=== PATIENT | male | born 1945 | race Caucasian/White ===

== ENCOUNTER 2018-02-04 09:58 | Emergency (ER) | payer OTHER, SELFPAY ==
[2018-02-04] VITALS (7 sets, daily range): BP systolic 87–159; BP diastolic 51–106; PULSE 58–154; RESP 14–20; TEMP 36.7; O2SAT 99–100; BMI 22.4
[2018-02-04] MEDS: SODIUM CHLORIDE 0.9% 1,000 ML 1000 ML IV (10:36)
--- NOTE | 2018-02-04 10:47 | PC.NURSE ---
Denies complaints. Laying in bed, talking w/ . States he did not take in a significant amount of fluid yesterday, and today has been NPO since last evening.
--- NOTE | 2018-02-04 10:47 | ED.ARRPALP ---
HPI - Arrhythmia/Palpitations General Chief Complaint: Arrhythmia/Palpitations Stated Complaint: states Afib Time Seen by Provider: 02/04/18 10:03 Source: patient and family Mode of arrival: ambulatory Limitations: no limitations History of Present Illness HPI narrative: Patient presents to the emergency department with a chief complaint of palpitations that started last evening. He has a longstanding history of AFib which seems to be triggered by hot weather. He was over in when throat been it was near 80?? yesterday. He denies chest pain or shortness of breath. His symptoms persist on arrival. His baseline blood pressure is about 100 systolic MD complaint: rapid heart beat, heart racing and palpitations Onset (ago): hour(s) Duration: constant Severity: moderate Context: occurred during rest Arrhythmia history: atrial fibrillation Associated symptoms: denies other symptoms Related Data Previous Rx's Medication Instructions Recorded atenolol 37.5 mg PO QDAY #135 tab 10/14/17 Allergies Allergy/AdvReac Type Severity Reaction Status Date / Time No Known Drug Allergies Allergy Verified 02/04/18 10:14 Review of Systems Review of Systems All systems reviewed & are unremarkable except as noted in HPI and below Constitutional Denies chills, Denies fever(s), Denies lethargy and Denies weakness Eyes Denies change in vision, Denies eye discharge, Denies irritation and Denies loss of vision ENT Ears, Nose, Mouth, and Throat: Denies change in voice, Denies neck pain and Denies sore throat Cardiovascular Denies chest pain, Reports irregular heart rhythm, Denies lightheadedness, Denies palpitations, Denies dyspnea, Denies dyspnea on exertion and Denies orthopnea Respiratory Denies cough, Denies dyspnea, Denies dyspnea on exertion and Denies wheezing Gastrointestinal Gastrointestinal: Denies abdominal pain, Denies change in bowel habits, Denies diarrhea, Denies nausea and Denies vomiting Genitourinary Denies hematuria, Denies flank pain, Denies urinary incontinence and Denies urinary urgency Musculoskeletal Denies neck pain Integumentary/Breasts Denies pruritus, Denies erythema, Denies rash and Denies wounds Neurologic Denies confusion, Denies loss of vision and Denies weakness Psychiatric Denies anxiety, Denies confusion, Denies depression, Denies homicidal ideation and Denies suicidal ideation Endocrine Denies palpitations Hematologic/Lymphatic Denies easy bruising Allergic/Immunologic Denies wheezing PFSH Social History Smoking Status: Never smoker Exam Narrative Exam Narrative: Pleasant 73-year-old male in mild distress. Monitor showing a rapid rhythm around 150-160 Const General: cooperative and well developed Nutritional Appearance: well nourished Orientation: alert, awake, oriented x3 and not confused HENMT Head: normocephalic and atraumatic Ears: external ears normal and TM's normal bilaterally Nose: external nose normal and No nasal discharge Face and sinus: sinuses nontender, face symmetric, no sinus tenderness and No dry mucous membranes Mouth: oral mucosae normal and moist mucous membranes Teeth and gingiva: dentition normal Throat: tonsils normal and uvula midline Resp Effort & Inspection: normal respiratory effort, able to speak in complete sentences, no respiratory distress and no use of accessory muscles Auscultation: clear to auscultation bilaterally, no rales, no rhonchi and no wheezes Cardio Rate: tachycardic Rhythm: abnormal rhythm Heart Sounds: no click, no gallops, no murmurs and no rubs Pulses: normal peripheral pulses GI Inspection: non-distended Palpation: soft, no hepatosplenomegaly, No guarding, No pulsatile mass and No tender Auscultation: normal bowel sounds Skin General: no rashes or lesions noted, No jaundice and No petechiae Neuro General: alert, oriented x3 and gait normal Speech: speech normal Sensory Exam: no sensory deficits noted Extrem General: full ROM, no clubbing, cyanosis or edema, no pedal edema and no calf tenderness MDM - Arrhythmia/Palpitations Differential Diagnosis Differential diagnosis: Likely palpitations, sinus tachycardia and artial fibrillation Medical Records Attestation: I reviewed the patient's medical records. ECG Data Attestation: I personally reviewed and interpreted this ECG as follows: Prior ECG tracings: not available for review Interpretation: EKG1: rapid AFib 148. No ischemia. No ST/T wave changes EKG2: spontaneous conversion to NSR, 68. no ischemia Course Orders Ordered: ED Orders 02/04/18 10:17 EKG-12 Lead Stat 02/04/18 10:18 EKG-12 Lead Stat Discontinued Medications Sodium Chloride (Normal Saline 0.9%) 1,000 mls @ 1,000 mls/hr IV BOLUS ONE Stop: 02/04/18 11:33 Last Infusion: 02/04/18 11:42 Dose: 0 mls/hr Admin: 02/04/18 10:36 Dose: 1,000 mls/hr Last Vital Signs Temp 98.1 F 02/04/18 10:00 Pulse 60 02/04/18 11:15 Resp 14 02/04/18 11:15 BP 98/55 L 02/04/18 11:15 Pulse Ox 100 02/04/18 11:15 Discharge Plan Departure Patient Disposition: Home, Self-Care Clinical Impression: A-fib Discharge Date/Time: 02/04/18 11:45 Interventions: ED Discharge Assessment Last Done: 02/04/18 11:44 Instructions: DI for Atrial Fibrillation Prescriptions: No Action atenolol 25 MG tablet 37.5 mg PO QDAY Qty: 135 RF: 3 Referrals: Alfredo Soto MD [Primary Care Provider] -
--- NOTE | 2018-02-04 11:41 | PC.NURSE ---
Up and walked around. States he feels well. Denies dizziness, sob, cp, palpitations. Continues NSR on monitor. Cleared for discharge.
--- NOTE | 2018-02-04 11:43 | PC.NURSE ---
EKG x 2 completed, both reviewed by Dr. Burt
== END 2018-02-04 11:45 | disposition home or self-care (01) ==
PROVIDERS: Emergency Provider Emergency Medicine; Family Provider Internal Medicine; PCP Internal Medicine
DX: I48.91 Unspecified atrial fibrillation (principal)
CPT/HCPCS: 36591; 93005; 93041; 96360; 99284

== ENCOUNTER 2018-02-23 06:37 | Observation (INO) | payer OTHER, SELFPAY ==
[2018-02-23] VITALS (28 sets, daily range): BP systolic 81–148; BP diastolic 30–80; PULSE 38–161; RESP 11–24; TEMP 36.7–37.4; O2SAT 95–99; BMI 21.9
[2018-02-23 07:08] LABS: Add Manual Diff / Slide Review NO; Basophils Percent Auto 0.8 % (0-2); Hematocrit 45.3 % (41-53); Hemoglobin 15.8 g/dL (13.5-17.5); Lymphocytes Percent Auto 19.6 % (25-40); Mean Corpuscular HGB Conc 34.9 % (30-36); Mean Corpuscular Volume 91.6 fL (80-100); Monocytes Percent Auto 11.1 % (3-14); Neutrophils Absolute Auto 3300 /uL (3000-5900); Neutrophils Percent Auto 63.5 % (50-75); Platelet Count 189 X10^3/uL (150-400); Red Blood Cell Count 4.94 X10^6/uL (4.5-5.9); Red Cell Distribution Width 12.9 % (11.6-14.8); White Blood Cell Count 5.2 X10^3/uL (4.5-11.0)
[2018-02-23 07:12] LABS: Prothrombin Time 11.2 SECONDS (10.1-12.7)
[2018-02-23 07:14] LABS: PTT Partial Thromboplastin Tim 30 SECONDS (26.4-36.2)
[2018-02-23 07:18] LABS: Blood Urea Nitrogen 24 mg/dL (9-20); Carbon Dioxide 29 mmol/L (22-32); Chloride 101 mmol/L (98-107); Estimated Glomerular Filt Rate > 60.0 mL/min (>60); Glucose 103 mg/dL (80-110); HEMOLYSIS 20 (0-50); Potassium 4.5 mmol/L (3.4-5.1); Sodium 139 mmol/L (137-145)
--- NOTE | 2018-02-23 07:20 | ED.ARRPALP ---
HPI - Arrhythmia/Palpitations General Chief Complaint: Arrhythmia/Palpitations Stated Complaint: AFIB Time Seen by Provider: 02/23/18 07:00 Source: patient Mode of arrival: ambulatory Limitations: no limitations History of Present Illness HPI narrative: Patient presents to the emergency department this morning with a chief complaint of rapid AFib. He has increasing frequency in his AFib and prior to the past few months he had gone about 5 years. He was seen here and cardioverted on November 24 and was seen again on February 02 but spontaneously converted. He only takes atenolol for rate control and has a low chads Vasc score is therefore on no anticoagulation. He denies chest pain, shortness of breath nor dizziness. He states he started this morning at about 5am and is usually rather sensitive to the effects of afib. MD complaint: rapid heart beat, heart racing, palpitations, irregular heart beat and atrial fibrillation Onset (ago): hour(s) Duration: constant Severity: moderate Context: occurred during rest Arrhythmia history: atrial fibrillation Associated symptoms: denies other symptoms Related Data Previous Rx's Medication Instructions Recorded atenolol 37.5 mg PO QDAY #135 tab 10/14/17 Allergies Allergy/AdvReac Type Severity Reaction Status Date / Time No Known Drug Allergies Allergy Verified 02/04/18 10:14 Review of Systems Review of Systems All systems reviewed & are unremarkable except as noted in HPI and below Constitutional Denies chills, Denies fever(s), Denies lethargy and Denies weakness Eyes Denies change in vision, Denies eye discharge, Denies irritation and Denies loss of vision ENT Ears, Nose, Mouth, and Throat: Denies change in voice, Denies neck pain and Denies sore throat Cardiovascular Denies chest pain, Reports irregular heart rhythm, Denies lightheadedness, Reports palpitations, Denies dyspnea, Denies dyspnea on exertion and Denies orthopnea Respiratory Denies cough, Denies dyspnea, Denies dyspnea on exertion and Denies wheezing Gastrointestinal Gastrointestinal: Denies abdominal pain, Denies change in bowel habits, Denies diarrhea, Denies nausea and Denies vomiting Genitourinary Denies hematuria, Denies flank pain, Denies urinary incontinence and Denies urinary urgency Musculoskeletal Denies neck pain Integumentary/Breasts Denies pruritus, Denies erythema, Denies rash and Denies wounds Neurologic Denies confusion, Denies loss of vision and Denies weakness Psychiatric Denies anxiety, Denies confusion, Denies depression, Denies homicidal ideation and Denies suicidal ideation Endocrine Reports palpitations Hematologic/Lymphatic Denies easy bruising Allergic/Immunologic Denies wheezing PFSH Social History Smoking Status: Never smoker Exam Narrative Exam Narrative: Pleasant 73-year-old male in no significant distress Initial Vital Signs Initial Vital Signs: Vital Signs Temperature 98.0 F 02/23/18 07:03 Pulse Rate 135 H 02/23/18 07:03 Respiratory Rate 16 02/23/18 07:03 Blood Pressure 122/67 H 02/23/18 07:03 Pulse Oximetry 99 02/23/18 07:03 Const General: cooperative and well developed Nutritional Appearance: well nourished Orientation: alert, awake, oriented x3 and not confused HENMT Head: normocephalic and atraumatic Ears: external ears normal and TM's normal bilaterally Nose: external nose normal and No nasal discharge Face and sinus: sinuses nontender, face symmetric, no sinus tenderness and No dry mucous membranes Mouth: oral mucosae normal and moist mucous membranes Teeth and gingiva: dentition normal Throat: tonsils normal and uvula midline Eyes General: appearance normal, both eyes and all related structures Eyelids: eyelids normal Conjunctivae: conjunctivae normal Sclera: sclerae normal Pupils: PERRL EOM: EOM intact bilaterally Chest Chest: normal inspection of the chest Resp Effort & Inspection: normal respiratory effort, able to speak in complete sentences, no respiratory distress and no use of accessory muscles Auscultation: clear to auscultation bilaterally, no rales, no rhonchi and no wheezes Cardio Rate: tachycardic Rhythm: abnormal rhythm Heart Sounds: no click, no gallops, no murmurs and no rubs Pulses: normal peripheral pulses GI Inspection: non-distended Palpation: soft, no hepatosplenomegaly, No guarding, No pulsatile mass and No tender Auscultation: normal bowel sounds Skin General: no rashes or lesions noted, No jaundice and No petechiae Psych Appearance: well kempt Mental Status: mental status grossly normal Attitude: cooperative Thought Content: normal and suicidality Judgment: judgment good Course Orders Ordered: ED Orders 02/23/18 06:53 Basic Metabolic Panel Stat Complete Blood Count AUTO DIFF Stat Partial Thromboplastin Time Stat Prothrombin Time INR Stat Troponin I Stat 02/23/18 07:01 EKG-12 Lead Stat 02/23/18 08:00 XR chest 1V Stat Diltiazem HCl 125 mg/ Dextrose 125 mls @ 5 mls/hr IV TITRATE ENIO; Protocol Sodium Chloride (Normal Saline 0.9%) 1,000 mls @ 100 mls/hr IV BOLUS ONE Stop: 02/23/18 18:38 Discontinued Medications Diltiazem HCl (Cardizem) 10 mg IV NOW ONE Stop: 02/23/18 07:23 Last Admin: 02/23/18 07:29 Dose: 10 mg Reevaluation(s) Reevaluation #1: Cardizem 10 mg IV push brings heart rate from the 150s and 160s down to about 110 Time: 08:22 Consultations Consultation #1: Dr. Brittany naidu for admission. Cardizem drip ordered Time: 08:23 Vital Signs - 8 hr 02/23/18 07:03 02/23/18 07:39 Temperature 98.0 F Pulse Rate 135 H 124 H Respiratory Rate 16 20 Blood Pressure 122/67 H Blood Pressure [Right Arm] 94/46 L Pulse Oximetry 99 95 MDM - Arrhythmia/Palpitations Differential Diagnosis Differential diagnosis: Likely palpitations, anxiety and artial fibrillation Medical Records Attestation: I reviewed the patient's medical records. Lab Data Attestation: I reviewed the patient's lab results. Result diagrams: 02/23/18 06:53 02/23/18 06:53 Lab Results 02/23/18 02/23/18 02/23/18 Range/Units 06:53 06:53 06:53 WBC 5.2 (4.5-11.0) X10^3/uL RBC 4.94 (4.5-5.9) X10^6/uL Hgb 15.8 (13.5-17.5) g/dL Hct 45.3 (41-53) % MCV 91.6 (80-100) fL MCH 32.0 (26-34) PG MCHC 34.9 (30-36) % RDW 12.9 (11.6-14.8) % Plt Count 189 (150-400) X10^3/uL Neut % (Auto) 63.5 (50-75) % Lymph % (Auto) 19.6 L (25-40) % [place] % (Auto) 11.1 (3-14) % Eos % (Auto) 5.0 H (2-4) % Baso % (Auto) 0.8 (0-2) % Neut # (Auto) 3300 (4787-1034) /uL PT 11.2 (10.1-12.7) SECONDS INR 1.0 (0.9-1.3) APTT 30 (26.4-36.2) SECONDS Sodium 139 (137-145) mmol/L Potassium 4.5 (3.4-5.1) mmol/L Chloride 101 (98-107) mmol/L Carbon Dioxide 29 (22-32) mmol/L BUN 24 H (9-20) mg/dL Creatinine 0.80 (0.66-1.25) mg/dL Estimated GFR > 60.0 (>60) mL/min BUN/Creatinine Ratio 30.0 H (6-22) Glucose 103 (80-110) mg/dL Calcium 9.0 (8.4-10.2) mg/dL Troponin I < 0.012 (0.01-0.034) ng/mL ECG Data Attestation: I personally reviewed and interpreted this ECG as follows: Prior ECG tracings: available for review Interpretation: Afib 150-160s. No ST segmental depression/elevation. NO signs of ischemia MDM Narrative Medical decision making narrative: patient has been Afib at least one other time in the past few weeks. He has increasing episodes and is largely sensitive to the sensation, but he is not anticoagulated and is having no significant symptoms and is therefore not a candidate for cardioversion in my opinion. We will admit on Cardizem drip to further characterize and stabilize his condition. Discharge Plan Departure Patient Disposition: Admitted As Inpatient Clinical Impression: Atrial fibrillation with rapid ventricular response Interventions: ED Discharge Assessment Last Done: 02/23/18 07:43
[2018-02-23] MEDS: dilTIAZem 25 MG/5 ML SDV 10 MG IV (07:29)
[2018-02-23 07:39] LABS: Troponin I < 0.012 ng/mL (0.01-0.034)
--- NOTE | 2018-02-23 08:00 | DI.RAD.S_ITS ---
PROCEDURE: XR CHEST 1V INDICATIONS: fall, trauma, preop TECHNIQUE: One view of the chest was acquired. COMPARISON: [facility], , CHEST 1 VIEW, 11/24/2017, 6:10. FINDINGS: Surgical changes and devices: None. Lungs and pleura: No pleural effusions or pneumothorax. Lungs are clear. Mediastinum: Mediastinal contours appear normal. Heart size is normal. Aortic calcifications. Bones and chest wall: No suspicious bony lesions. Thoracic scoliosis. Overlying soft tissues appear unremarkable. IMPRESSION: No acute cardiopulmonary abnormality. Dictated by: Jeff Barton M.D. on 02/23/2018 at 8:14 Approved by: Jeff Barton M.D. on 02/23/2018 at 8:14
[2018-02-23] MEDS: dilTIAZem 125 MG in DEXTROSE 5 % IN WATER 100 ML IV (08:43)
--- NOTE | 2018-02-23 09:25 | PM.HP.1 ---
History of Present Illness Chief complaint: AFIB Narrative: Samuel Spence is a 73 year old male with a longstanding history of atrial fibrillation that has been paroxysmal. This probably dates back 20+ years. He has always been easy to cardiovert and has remained in sinus rhythm for extended periods of time between episodes of atrial fibrillation. He is actively refused anticoagulation and his risk score is actually been low enough it has not been recommended to him. However over the last 3+ months he has had 3+ episodes of atrial fibrillation. He spontaneously returned to sinus rhythm once which is unusual for him he came to the ER for electrocardioversion once and is back again with a recurrent episode of atrial fibrillation and rather rapid ventricular response which is his usual response. He has not been seen by Cardiology for many many years. Last clam treader was in [place]. Patient History Medical History Paroxysmal atrial fibrillation (Chronic) Essential tremor (Chronic 02/05/16) Family & Social History Family History: Reviewed 02/23/18 by Alfredo Soto MD Tobacco & Substance use: Smoking Status Never smoker alcohol intake frequency 0-2 drinks per day Substance Use Type does not use Meds Home Medications Medication Instructions Recorded Confirmed Type atenolol 37.5 mg PO QDAY #135 tab 10/14/17 02/23/18 Rx aspirin 1 tab PO 2XW 02/23/18 02/23/18 History [id number] 1 tab PO EVERY OTHER DAY 02/23/18 02/23/18 History [Multivitamin 50 Plus] Allergies Allergy/AdvReac Type Severity Reaction Status Date / Time No Known Drug Allergies Allergy Verified 02/04/18 10:14 Review of Systems Constitutional Constitutional: Denies excessive sweating, Denies fever(s), Denies headache(s), Denies weakness, Denies weight gain and Denies weight loss Eyes Eyes: Denies change in vision, Denies itchy eyes, Denies loss of vision and Denies other visual disturbances ENT Ears, Nose, Mouth, and Throat: No difficulty swallowing, No headache(s) and No neck pain Cardiovascular Cardiovascular: Denies chest pain, Denies fainting, Reports fast heart rate, Reports irregular heart rhythm, Reports rapid, pounding, or irregular heartbeat, Denies shortness of breath, Denies shortness of breath with exertion and Denies slow heart rate Respiratory Respiratory: Denies dyspnea and Denies dyspnea on exertion Gastrointestinal Gastrointestinal: Denies abdominal pain, Denies bloating, Denies change in bowel habits, Denies change in stool character, Denies dysphagia, Denies nausea, Denies vomiting and Denies hematemesis Genitourinary Genitourinary: Denies hematuria, Denies difficulty urinating and Denies urinary frequency Musculoskeletal Musculoskeletal: Denies abnormal gait, Denies myalgias, Denies arthralgias, Denies limited range of motion and Denies neck pain Integumentary/Breasts Skin/Breast: Denies bleeding lesions, Denies change in pigmentation, Denies changing lesions, Denies new lesions, Denies rash, Denies skin swelling, Denies sores and Denies jaundice Neurologic Neurologic: Denies abnormal gait, Denies behavioral changes, Denies confusion, Denies syncope, Denies headache(s), Denies loss of vision, Denies memory loss and Denies weakness Psychiatric Psychiatric: Denies behavioral changes, Denies change in appetite, Denies confusion, Denies difficulty concentrating, Denies auditory hallucinations, Denies memory loss, Denies mood swings and Denies suicidal ideation Endocrine Endocrine: Denies excessive sweating and Reports palpitations Hematologic/Lymphatic Hematologic/Lymphatic: Denies easy bleeding, Denies easy bruising and Denies lymphadenopathy Allergic/Immunologic Allergic/Immunologic: Denies itchy eyes Exam Vital Signs (past 8 hours): Vital Signs - 8 hr 02/23/18 07:03 02/23/18 07:39 02/23/18 08:39 Temperature 98.0 F Pulse Rate 135 H 124 H 161 H Respiratory Rate 16 20 21 Blood Pressure 122/67 H Blood Pressure [Right Arm] 94/46 L 101/56 L Pulse Oximetry 99 95 95 02/23/18 08:43 Temperature Pulse Rate 138 H Respiratory Rate Blood Pressure 101/56 L Blood Pressure [Right Arm] Pulse Oximetry Pulse Oximetry 95 Oxygen Delivery Method Room Air Narrative Exam Narrative: Elderly male who appears younger than stated age in no obvious distress lying on a gurney in the emergency department HEENT-unremarkable, normocephalic atraumatic Neck-no lymphadenopathy no bruits Lungs-clear anteriorly and posteriorly no wheezes no crackles good breath sounds Heart-irregularly irregular rate and rhythm no murmur rub or gallop normal S1-S2 Abdomen-positive bowel tones soft nontender nondistended no hepatosplenomegaly no masses palpable Neuro-normal to screening exam, gait not tested Extremities-no cyanosis clubbing or edema Objective Imaging Chest x-ray: My impression: No cardiopulmonary disease based on single-view chest x-ray Radiologist's impression: PROCEDURE: XR CHEST 1V INDICATIONS: fall, trauma, preop TECHNIQUE: One view of the chest was acquired. COMPARISON: [facility], , CHEST 1 VIEW, 11/24/2017, 6:10. FINDINGS: Surgical changes and devices: None. Lungs and pleura: No pleural effusions or pneumothorax. Lungs are clear. Mediastinum: Mediastinal contours appear normal. Heart size is normal. Aortic calcifications. Bones and chest wall: No suspicious bony lesions. Thoracic scoliosis. Overlying soft tissues appear unremarkable. IMPRESSION: No acute cardiopulmonary abnormality. ECG: Atrial fibrillation with rapid ventricular response Labs Result Diagrams: 02/23/18 06:53 02/23/18 06:53 Labs: Laboratory Results - last 24 hr 02/23/18 02/23/18 02/23/18 06:53 06:53 06:53 WBC 5.2 RBC 4.94 Hgb 15.8 Hct 45.3 MCV 91.6 MCH 32.0 MCHC 34.9 RDW 12.9 Plt Count 189 Neut % (Auto) 63.5 Lymph % (Auto) 19.6 L [place] % (Auto) 11.1 Eos % (Auto) 5.0 H Baso % (Auto) 0.8 Neut # (Auto) 3300 PT 11.2 INR 1.0 APTT 30 Sodium 139 Potassium 4.5 Chloride 101 Carbon Dioxide 29 BUN 24 H Creatinine 0.80 Estimated GFR > 60.0 BUN/Creatinine Ratio 30.0 H Glucose 103 Calcium 9.0 Troponin I < 0.012 Assessment & Plan (1) Atrial fibrillation with rapid ventricular response: Current visit: Yes Status: Acute Plan: Plan: Patient presented with recurrent atrial fibrillation. Rate has been slowed with use of IV diltiazem. Will continue on IV diltiazem drip. Given the increased frequency of these episodes I would think patient would benefit from Cardiology consultation for more definitive options of treatment rather than just having a cardioversion and sent on his way which is what patient would prefer. Therefore fortunately his troponin was normal all obtain an echocardiogram. Continue on IV diltiazem. I will give him Lovenox for anticoagulation for now and obtain cardiology consultation. I will also keep him NPO as patient is pretty clear he would prefer to have an electrical cardioversion if at all possible and I will defer that decision making to Cardiology. That could be done later this afternoon or potentially in the morning after he has been seen by Cardiology in any event. Patient really does not have any other active medical problems. Has a borderline history of an essential tremor which has been controlled with the atenolol a normally takes anyway for his atrial fibrillation.
--- NOTE | 2018-02-23 09:33 | P.HP_ITS ---
History of Present Illness Chief complaint: AFIB Narrative: Samuel Spence is a 73 year old male with a longstanding history of atrial fibrillation that has been paroxysmal. This probably dates back 20+ years. He has always been easy to cardiovert and has remained in sinus rhythm for extended periods of time between episodes of atrial fibrillation. He is actively refused anticoagulation and his risk score is actually been low enough it has not been recommended to him. However over the last 3+ months he has had 3+ episodes of atrial fibrillation. He spontaneously returned to sinus rhythm once which is unusual for him he came to the ER for electrocardioversion once and is back again with a recurrent episode of atrial fibrillation and rather rapid ventricular response which is his usual response. He has not been seen by Cardiology for many many years. Last electronic gluer was in [place]. Patient History Medical History Paroxysmal atrial fibrillation (Chronic) Essential tremor (Chronic 02/05/16) Family & Social History Family History: Reviewed 02/23/18 by Alfredo Soto MD Tobacco & Substance use: Smoking Status Never smoker alcohol intake frequency 0-2 drinks per day Substance Use Type does not use Meds Home Medications Medication Instructions Recorded Confirmed Type atenolol 37.5 mg PO QDAY #135 tab 10/14/17 02/23/18 Rx aspirin 1 tab PO 2XW 02/23/18 02/23/18 History vbqprsinfkpn-mfjnzrwn-akfsrz 1 tab PO EVERY OTHER DAY 02/23/18 02/23/18 History [Multivitamin 50 Plus] Allergies Allergy/AdvReac Type Severity Reaction Status Date / Time No Known Drug Allergies Allergy Verified 02/04/18 10:14 Review of Systems Constitutional Constitutional: Denies excessive sweating, Denies fever(s), Denies headache(s), Denies weakness, Denies weight gain and Denies weight loss Eyes Eyes: Denies change in vision, Denies itchy eyes, Denies loss of vision and Denies other visual disturbances ENT Ears, Nose, Mouth, and Throat: No difficulty swallowing, No headache(s) and No neck pain Cardiovascular Cardiovascular: Denies chest pain, Denies fainting, Reports fast heart rate, Reports irregular heart rhythm, Reports rapid, pounding, or irregular heartbeat , Denies shortness of breath, Denies shortness of breath with exertion and Denies slow heart rate Respiratory Respiratory: Denies dyspnea and Denies dyspnea on exertion Gastrointestinal Gastrointestinal: Denies abdominal pain, Denies bloating, Denies change in bowel habits, Denies change in stool character, Denies dysphagia, Denies nausea , Denies vomiting and Denies hematemesis Genitourinary Genitourinary: Denies hematuria, Denies difficulty urinating and Denies urinary frequency Musculoskeletal Musculoskeletal: Denies abnormal gait, Denies myalgias, Denies arthralgias, Denies limited range of motion and Denies neck pain Integumentary/Breasts Skin/Breast: Denies bleeding lesions, Denies change in pigmentation, Denies changing lesions, Denies new lesions, Denies rash, Denies skin swelling, Denies sores and Denies jaundice Neurologic Neurologic: Denies abnormal gait, Denies behavioral changes, Denies confusion, Denies syncope, Denies headache(s), Denies loss of vision, Denies memory loss and Denies weakness Psychiatric Psychiatric: Denies behavioral changes, Denies change in appetite, Denies confusion, Denies difficulty concentrating, Denies auditory hallucinations, Denies memory loss, Denies mood swings and Denies suicidal ideation Endocrine Endocrine: Denies excessive sweating and Reports palpitations Hematologic/Lymphatic Hematologic/Lymphatic: Denies easy bleeding, Denies easy bruising and Denies lymphadenopathy Allergic/Immunologic Allergic/Immunologic: Denies itchy eyes Exam Vital Signs (past 8 hours): Vital Signs - 8 hr 3 02/23/18 07:03 02/23/18 07:39 02/23/18 08:39 Temperature 98.0 F Pulse Rate 135 H 124 H 161 H Respiratory Rate 16 20 21 Blood Pressure 122/67 H Blood Pressure [Right Arm] 94/46 L 101/56 L Pulse Oximetry 99 95 95 3 02/23/18 08:43 Temperature Pulse Rate 138 H Respiratory Rate Blood Pressure 101/56 L Blood Pressure [Right Arm] Pulse Oximetry Pulse Oximetry 95 Oxygen Delivery Method Room Air Narrative Exam Narrative: Elderly male who appears younger than stated age in no obvious distress lying on a gurney in the emergency department HEENT-unremarkable, normocephalic atraumatic Neck-no lymphadenopathy no bruits Lungs-clear anteriorly and posteriorly no wheezes no crackles good breath sounds Heart-irregularly irregular rate and rhythm no murmur rub or gallop normal S1-S2 Abdomen-positive bowel tones soft nontender nondistended no hepatosplenomegaly no masses palpable Neuro-normal to screening exam, gait not tested Extremities-no cyanosis clubbing or edema Objective Imaging Chest x-ray: My impression: No cardiopulmonary disease based on single-view chest x-ray Radiologist's impression: PROCEDURE: XR CHEST 1V INDICATIONS: fall, trauma, preop TECHNIQUE: One view of the chest was acquired. COMPARISON: [facility], , CHEST 1 VIEW, 11/24/2017, 6:10. FINDINGS: Surgical changes and devices: None. Lungs and pleura: No pleural effusions or pneumothorax. Lungs are clear. Mediastinum: Mediastinal contours appear normal. Heart size is normal. Aortic calcifications. Bones and chest wall: No suspicious bony lesions. Thoracic scoliosis. Overlying soft tissues appear unremarkable. IMPRESSION: No acute cardiopulmonary abnormality. ECG: Atrial fibrillation with rapid ventricular response Labs Result Diagrams: 02/23/18 06:53 02/23/18 06:53 Labs: Laboratory Results - last 24 hr 02/23/18 02/23/18 02/23/18 06:53 06:53 06:53 WBC 5.2 RBC 4.94 Hgb 15.8 Hct 45.3 MCV 91.6 MCH 32.0 MCHC 34.9 RDW 12.9 Plt Count 189 Neut % (Auto) 63.5 Lymph % (Auto) 19.6 L [place] % (Auto) 11.1 Eos % (Auto) 5.0 H Baso % (Auto) 0.8 Neut # (Auto) 3300 PT 11.2 INR 1.0 APTT 30 Sodium 139 Potassium 4.5 Chloride 101 Carbon Dioxide 29 BUN 24 H Creatinine 0.80 Estimated GFR > 60.0 BUN/Creatinine Ratio 30.0 H Glucose 103 Calcium 9.0 Troponin I < 0.012 Assessment & Plan (1) Atrial fibrillation with rapid ventricular response: Current visit: Yes Status: Acute Plan: Plan: Patient presented with recurrent atrial fibrillation. Rate has been slowed with use of IV diltiazem. Will continue on IV diltiazem drip. Given the increased frequency of these episodes I would think patient would benefit from Cardiology consultation for more definitive options of treatment rather than just having a cardioversion and sent on his way which is what patient would prefer. Therefore fortunately his troponin was normal all obtain an echocardiogram. Continue on IV diltiazem. I will give him Lovenox for anticoagulation for now and obtain cardiology consultation. I will also keep him NPO as patient is pretty clear he would prefer to have an electrical cardioversion if at all possible and I will defer that decision making to Cardiology. That could be done later this afternoon or potentially in the morning after he has been seen by Cardiology in any event. Patient really does not have any other active medical problems. Has a borderline history of an essential tremor which has been controlled with the atenolol a normally takes anyway for his atrial fibrillation.
--- NOTE | 2018-02-23 09:59 | DI.ECHO.S_ITS ---
[facility]---------+ [facility] +---------+ : : [address] : : : : [id number] : : : : Phone: [phone] Echocardiogram Report + + :Name: LUISITO RUIZ Study Date: 02/23/2018 Height: 76 in : :[facility] Weight: 180 lb : : Gender: Male BSA: 2.1 m2 : :: 1945 Age: 73 yrs BP: 108/90 mmHg: :Reason For Study: Atrial fibrillation : : Performed By: Marlyn Fountain : :Referring: KEYSHA TORREZ R : + + Interpretation Summary The left ventricle is normal in size, wall thickness, and systolic function without any focal wall motion abnormalities. The ejection fraction is estimated to be 60-65%. The right ventricle is mildly dilated. The right ventricular systolic pressure is estimated at 26 mmHg assuming a right atrial pressure of 3 mm Hg. The IVC is of normal diameter and collapses greater than 50% with a sniff. This suggests a low right atrial pressure of 3 mm Hg. There is no significant valvular heart disease. No other echocardiographic abnormalities seen. Procedure: A two-dimensional transthoracic echocardiogram with color flow and Doppler was performed. The study quality was technically adequate. There is no prior echocardiogram noted for this patient. The patient was in atrial fibrillation with heart rates between 77-91 bpm during the exam. Left Ventricle: The left ventricle is normal in size, wall thickness, and systolic function without any focal wall motion abnormalities. The ejection fraction is estimated to be 60-65%. There are no focal wall motion abnormalities. Diastolic function could not be accurately assessed due to atrial fibrillation. Right Ventricle: The right ventricle is mildly dilated. Right ventricular systolic function is mildly reduced. Atria: The left atrial size is normal. The right atrium is mildly dilated. The interatrial septum is intact with no evidence for an atrial septal defect. Mitral Valve: The mitral valve is normal in structure and function. There is no mitral regurgitation noted. Aortic Valve: The aortic valve is trileaflet. The aortic valve opens well. No aortic regurgitation is present. Tricuspid Valve: The tricuspid valve leaflets are thin and pliable. There is mild to moderate tricuspid regurgitation. The right ventricular systolic pressure is estimated at 26 mmHg assuming a right atrial pressure of 3 mm Hg. Pulmonic Valve: The pulmonic valve is normal in structure and function. There is no pulmonic valvular regurgitation. Great Vessels: The aortic root is normal size. The ascending aorta could not be visualized. The IVC is of normal diameter and collapses greater than 50% with a sniff. This suggests a low right atrial pressure of 3 mm Hg. Pericardium/ Pleura There is no pericardial effusion. There is no pleural effusion. MMode/2D Measurements & Calculations LVIDd: 4.6 cm Ao root diam: 3.5 cm LVIDs: 2.7 cm Aortic Jxn: 3.6 cm FS: 41.0 % Ao Arch Diam (Prox Trans): 2.8 cm EPSS: 0.59 cm IVSd: 0.93 cm LVPWd: 0.84 cm LV long. diameter/BSA (cm/m^2): 2.2 LV sys. diameter/BSA (cm/m^2): 1.3 LA dimension: 3.4 cm RA long axis: 6.2 cm LA A2 area: 17.4 cm2 RA area: 23.8 cm2 LA A4 area: 19.9 cm2 RA vol: 78.3 ml LA length (vol): 5.9 cm RA : 37.0 ml/m2 LA vol: 50.1 ml IVC diam: 1.7 cm LA vol index: 23.6 ml/m2 RVDd major: 6.8 cm RVD1 (basal): 4.1 cm RVD2 (mid): 3.9 cm Doppler Measurements & Calculations Ao V2 max: 113.5 cm/sec Med Peak E' Kody: 10.1 cm/sec Ao V2 mean: 73.4 cm/sec Lat Peak E' Kody: 10.2 cm/sec Ao max P.2 mmHg MV P1/2t: 95.8 msec Ao mean P.6 mmHg Ao V2 VTI: 22.0 cm TR max kody: 239.8 cm/sec MV V2 mean: 41.1 cm/sec TR max P.0 mmHg MV mean P.95 mmHg PA V2 max: 73.4 cm/sec MV V2 VTI: 18.7 cm PA V2 mean: 47.0 cm/sec PA mean P.1 mmHg PA Accel Time: 0.13 sec MV P1/2t max kody: 93.3 cm/sec MVA(P1/2t): 2.3 cm2 Reading Physician:04:09 PM
[2018-02-23] MEDS: SODIUM CHLORIDE 0.9% 1,000 ML 100 ML IV (10:00)
[2018-02-23] MEDS: ENOXAPARIN 80 MG/0.8 ML SYRINGE SUBCUT (10:54)
--- NOTE | 2018-02-23 12:42 | PM.CN ---
History of Present Illness Chief complaint: AFIB Reason for consult: Atrial fibrillation [facility] Medical History Paroxysmal atrial fibrillation (Chronic) Essential tremor (Chronic 02/05/16) Social History household members: spouse Smoking Status: Never smoker Meds Home Medications Medication Instructions Recorded Confirmed Type atenolol 37.5 mg PO QDAY #135 tab 10/14/17 02/23/18 Rx aspirin 1 tab PO 2XW 02/23/18 02/23/18 History [id number]-vfrnowhn-abffwn 1 tab PO EVERY OTHER DAY 02/23/18 02/23/18 History [Multivitamin 50 Plus] Allergies Allergy/AdvReac Type Severity Reaction Status Date / Time No Known Drug Allergies Allergy Verified 02/04/18 10:14 Exam Vital Signs (past 8 hours): Vital Signs - 8 hr 02/23/18 07:03 02/23/18 07:39 02/23/18 08:39 Temperature 98.0 F Pulse Rate 135 H 124 H 161 H Respiratory Rate 16 20 21 Blood Pressure 122/67 H Blood Pressure [Right Arm] 94/46 L 101/56 L Pulse Oximetry 99 95 95 02/23/18 08:43 02/23/18 10:30 02/23/18 11:00 Temperature 98.8 F Pulse Rate 138 H 136 H 95 H Respiratory Rate 16 24 Blood Pressure 101/56 L 148/61 H 92/47 L Blood Pressure [Right Arm] Pulse Oximetry 98 98 02/23/18 12:41 Temperature Pulse Rate 105 H Respiratory Rate Blood Pressure 109/80 Blood Pressure [Right Arm] Pulse Oximetry Pulse Oximetry 98 Oxygen Delivery Method Room Air Objective Labs Result Diagrams: 02/23/18 06:53 02/23/18 06:53 Labs: Laboratory Results - last 24 hr 02/23/18 02/23/18 02/23/18 06:53 06:53 06:53 WBC 5.2 RBC 4.94 Hgb 15.8 Hct 45.3 MCV 91.6 MCH 32.0 MCHC 34.9 RDW 12.9 Plt Count 189 Neut % (Auto) 63.5 Lymph % (Auto) 19.6 L [place] % (Auto) 11.1 Eos % (Auto) 5.0 H Baso % (Auto) 0.8 Neut # (Auto) 3300 PT 11.2 INR 1.0 APTT 30 Sodium 139 Potassium 4.5 Chloride 101 Carbon Dioxide 29 BUN 24 H Creatinine 0.80 Estimated GFR > 60.0 BUN/Creatinine Ratio 30.0 H Glucose 103 Calcium 9.0 Troponin I < 0.012 Nasal Screen MRSA (PCR) 02/23/18 10:24 WBC RBC Hgb Hct MCV MCH MCHC RDW Plt Count Neut % (Auto) Lymph % (Auto) [place] % (Auto) Eos % (Auto) Baso % (Auto) Neut # (Auto) PT INR APTT Sodium Potassium Chloride Carbon Dioxide BUN Creatinine Estimated GFR BUN/Creatinine Ratio Glucose Calcium Troponin I Nasal Screen MRSA (PCR) Negative for mrsa Assessment & Plan (1) Paroxysmal atrial fibrillation: Current visit: Yes Status: Chronic
--- NOTE | 2018-02-23 12:50 | P.CONS_ITS ---
History of Present Illness Chief complaint: AFIB Reason for consult: Atrial fibrillation [facility] Medical History Paroxysmal atrial fibrillation (Chronic) Essential tremor (Chronic 02/05/16) Social History household members: spouse Smoking Status: Never smoker Meds Home Medications Medication Instructions Recorded Confirmed Type atenolol 37.5 mg PO QDAY #135 tab 10/14/17 02/23/18 Rx aspirin 1 tab PO 2XW 02/23/18 02/23/18 History naoobvuqewhk-tpwsxven-rqbtnx 1 tab PO EVERY OTHER DAY 02/23/18 02/23/18 History [Multivitamin 50 Plus] Allergies Allergy/AdvReac Type Severity Reaction Status Date / Time No Known Drug Allergies Allergy Verified 02/04/18 10:14 Exam Vital Signs (past 8 hours): Vital Signs - 8 hr 3 02/23/18 07:03 02/23/18 07:39 02/23/18 08:39 Temperature 98.0 F Pulse Rate 135 H 124 H 161 H Respiratory Rate 16 20 21 Blood Pressure 122/67 H Blood Pressure [Right Arm] 94/46 L 101/56 L Pulse Oximetry 99 95 95 3 02/23/18 08:43 02/23/18 10:30 02/23/18 11:00 Temperature 98.8 F Pulse Rate 138 H 136 H 95 H Respiratory Rate 16 24 Blood Pressure 101/56 L 148/61 H 92/47 L Blood Pressure [Right Arm] Pulse Oximetry 98 98 3 02/23/18 12:41 Temperature Pulse Rate 105 H Respiratory Rate Blood Pressure 109/80 Blood Pressure [Right Arm] Pulse Oximetry Pulse Oximetry 98 Oxygen Delivery Method Room Air Objective Labs Result Diagrams: 02/23/18 06:53 02/23/18 06:53 Labs: Laboratory Results - last 24 hr 02/23/18 02/23/18 02/23/18 06:53 06:53 06:53 WBC 5.2 RBC 4.94 Hgb 15.8 Hct 45.3 MCV 91.6 MCH 32.0 MCHC 34.9 RDW 12.9 Plt Count 189 Neut % (Auto) 63.5 Lymph % (Auto) 19.6 L [place] % (Auto) 11.1 Eos % (Auto) 5.0 H Baso % (Auto) 0.8 Neut # (Auto) 3300 PT 11.2 INR 1.0 APTT 30 Sodium 139 Potassium 4.5 Chloride 101 Carbon Dioxide 29 BUN 24 H Creatinine 0.80 Estimated GFR > 60.0 BUN/Creatinine Ratio 30.0 H Glucose 103 Calcium 9.0 Troponin I < 0.012 Nasal Screen MRSA (PCR) 02/23/18 10:24 WBC RBC Hgb Hct MCV MCH MCHC RDW Plt Count Neut % (Auto) Lymph % (Auto) [place] % (Auto) Eos % (Auto) Baso % (Auto) Neut # (Auto) PT INR APTT Sodium Potassium Chloride Carbon Dioxide BUN Creatinine Estimated GFR BUN/Creatinine Ratio Glucose Calcium Troponin I Nasal Screen MRSA (PCR) Negative for mrsa Assessment & Plan (1) Paroxysmal atrial fibrillation: Current visit: Yes Status: Chronic
--- NOTE | 2018-02-23 13:17 | PM.CN ---
History of Present Illness Date Patient Seen: 02/23/18 Time Patient Seen: 13:24 Chief complaint: AFIB Reason for consult: Atrial fibrillation Requesting provider: Alfredo Soto Narrative: Samuel Spence is a 73 year old male with a longstanding history of atrial fibrillation that has been paroxysmal. This probably dates back 50+ years. He has always been easy to cardiovert and has remained in sinus rhythm for extended periods of time between episodes of atrial fibrillation. He is actively refused anticoagulation. His 1st episode of AFib happened in 1967. Since then he has total 12 episodes of AFib. During AFib, he feels palpitation, dizziness and sometimes shortness of breath. No active chest pain. In the past he has had syncope as well. No stroke-like symptoms. Denies any excessive caffeine intake or alcohol intake. No previous history of myocardial infarction or congestive heart failure or rheumatic heart disease or DVT or pulmonary embolism. He has history of sleep apnea but never been investigated. However over the last 3+ months he has had 3+ episodes of atrial fibrillation. In November he had AFib and got cardioverted at [facility]. He chose not to be on anticoagulation. About 3 weeks ago he had episode of AFib with fast ventricular rate. It lasted about 5 hr with spontaneous resolution to sinus rhythm. This morning, he had episode about 5:00 a.m. this morning. From last 3 times all his episodes of AFib happened early in the morning. He decided to come to the emergency room. Through the emergency room he got admitted to the ICU. He received subcu Lovenox around 10:00 a.m. at present no active chest pain or shortness of breath or PND orthopnea or bleeding or fever chills or new cardiovascular symptoms. [facility] Medical History Paroxysmal atrial fibrillation (Chronic) Essential tremor (Chronic 02/05/16) Social History household members: spouse Smoking Status: Never smoker Meds Home Medications Medication Instructions Recorded Confirmed Type atenolol 37.5 mg PO QDAY #135 tab 10/14/17 02/23/18 Rx aspirin 1 tab PO 2XW 02/23/18 02/23/18 History [id number]-zytjfkro-bitagm 1 tab PO EVERY OTHER DAY 02/23/18 02/23/18 History [Multivitamin 50 Plus] Allergies Allergy/AdvReac Type Severity Reaction Status Date / Time No Known Drug Allergies Allergy Verified 02/04/18 10:14 Review of Systems Review of Systems All systems reviewed & are unremarkable except as noted in HPI and below Exam Vital Signs (past 8 hours): Vital Signs - 8 hr 02/23/18 07:03 02/23/18 07:39 02/23/18 08:39 Temperature 98.0 F Pulse Rate 135 H 124 H 161 H Respiratory Rate 16 20 21 Blood Pressure 122/67 H Blood Pressure [Right Arm] 94/46 L 101/56 L Pulse Oximetry 99 95 95 02/23/18 08:43 02/23/18 10:30 02/23/18 11:00 Temperature 98.8 F Pulse Rate 138 H 136 H 95 H Respiratory Rate 16 24 Blood Pressure 101/56 L 148/61 H 92/47 L Blood Pressure [Right Arm] Pulse Oximetry 98 98 02/23/18 12:41 Temperature Pulse Rate 105 H Respiratory Rate Blood Pressure 109/80 Blood Pressure [Right Arm] Pulse Oximetry Pulse Oximetry 98 Oxygen Delivery Method Room Air Const General: comfortable Orientation: awake HENNJ Head: atraumatic Eyes Other: No xanthelasma Neck Other: No JVD or carotid bruit Chest Chest: normal inspection of the chest and No crepitus Resp Effort & Inspection: normal respiratory effort Auscultation: no rales and no rhonchi Cardio Other: S1 variable, P2 normal, no S3 no S4 no significant murmur GI Other: No obvious hepatosplenomegaly General: No CVA tenderness Back/Spine/Pelvis Back: No back tenderness Skin General: No pallor Neuro Other: No obvious motor or sensory deficit Extrem Other: No significant pedal edema Psych Other: An alert oriented times place and person Objective Imaging EKG: ECG: EKG done today at 6:58 a.m. 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 RSR-complex in V1 Labs Result Diagrams: 02/23/18 06:53 02/23/18 06:53 Labs: Laboratory Results - last 24 hr 02/23/18 02/23/18 02/23/18 06:53 06:53 06:53 WBC 5.2 RBC 4.94 Hgb 15.8 Hct 45.3 MCV 91.6 MCH 32.0 MCHC 34.9 RDW 12.9 Plt Count 189 Neut % (Auto) 63.5 Lymph % (Auto) 19.6 L [place] % (Auto) 11.1 Eos % (Auto) 5.0 H Baso % (Auto) 0.8 Neut # (Auto) 3300 PT 11.2 INR 1.0 APTT 30 Sodium 139 Potassium 4.5 Chloride 101 Carbon Dioxide 29 BUN 24 H Creatinine 0.80 Estimated GFR > 60.0 BUN/Creatinine Ratio 30.0 H Glucose 103 Calcium 9.0 Troponin I < 0.012 Nasal Screen MRSA (PCR) 02/23/18 10:24 WBC RBC Hgb Hct MCV MCH MCHC RDW Plt Count Neut % (Auto) Lymph % (Auto) [place] % (Auto) Eos % (Auto) Baso % (Auto) Neut # (Auto) PT INR APTT Sodium Potassium Chloride Carbon Dioxide BUN Creatinine Estimated GFR BUN/Creatinine Ratio Glucose Calcium Troponin I Nasal Screen MRSA (PCR) Negative for mrsa Assessment & Plan (1) Atrial fibrillation with rapid ventricular response: Current visit: Yes Status: Acute (2) Palpitation: Current visit: Yes Status: Acute (3) Dizziness: Current visit: Yes Status: Acute Plan: Plan: Patient has history of paroxysmal AFib from last 50 years. Recently his episodes has increased. Last 3 episodes happened early in the morning. He has symptoms of sleep apnea but never been investigated. At present his [id number] score is 1, however soon he will be 74 years old and will need anticoagulation as per guidelines. Patient is very sensitive to AFib. The movement he develops AFib, he knows about AFib. His AFib episode today started about 5 o'clock in the morning. It is less than 48 hr hence technically he can be cardioverted. He has already received Lovenox. Will recommend starting Eliquis 5 mg twice a day at around 10:00 p.m. 1st dose tonight. Benefits and side effects discussed. Discussed with Dr. Soto. He will plan cardioversion with the help of anesthesiologist. Patient agrees with the plan. We will check magnesium and TSH. Will recommend echocardiogram as well as exercise stress test and the sleep apnea evaluation. If there is no significant structural heart disease on echocardiogram and exercise test is normal, then one of the reasonable option is to consider antiarrhythmic medications like flecainide 50 mg twice a day along with tolerable dose of beta-safia for prevention of atrial fibrillation along with anticoagulation. If he fails antiarrhythmic therapy, consider AFib ablation. Patient and his agree with the plan. We will be happy to see him as an outpatient. Discussed the plan with Dr. Soto. Thanks for the cardiology consult.
--- NOTE | 2018-02-23 13:37 | P.CONS_ITS ---
History of Present Illness Date Patient Seen: 02/23/18 Time Patient Seen: 13:24 Chief complaint: AFIB Reason for consult: Atrial fibrillation Requesting provider: Alfredo Soto Narrative: Samuel Spence is a 73 year old male with a longstanding history of atrial fibrillation that has been paroxysmal. This probably dates back 50+ years. He has always been easy to cardiovert and has remained in sinus rhythm for extended periods of time between episodes of atrial fibrillation. He is actively refused anticoagulation. His 1st episode of AFib happened in 1967. Since then he has total 12 episodes of AFib. During AFib, he feels palpitation , dizziness and sometimes shortness of breath. No active chest pain. In the past he has had syncope as well. No stroke-like symptoms. Denies any excessive caffeine intake or alcohol intake. No previous history of myocardial infarction or congestive heart failure or rheumatic heart disease or DVT or pulmonary embolism. He has history of sleep apnea but never been investigated. However over the last 3+ months he has had 3+ episodes of atrial fibrillation. In November he had AFib and got cardioverted at [facility]. He chose not to be on anticoagulation. About 3 weeks ago he had episode of AFib with fast ventricular rate. It lasted about 5 hr with spontaneous resolution to sinus rhythm. This morning, he had episode about 5:00 a.m. this morning. From last 3 times all his episodes of AFib happened early in the morning. He decided to come to the emergency room. Through the emergency room he got admitted to the ICU. He received subcu Lovenox around 10:00 a.m. at present no active chest pain or shortness of breath or PND orthopnea or bleeding or fever chills or new cardiovascular symptoms. [facility] Medical History Paroxysmal atrial fibrillation (Chronic) Essential tremor (Chronic 02/05/16) Social History household members: spouse Smoking Status: Never smoker Meds Home Medications Medication Instructions Recorded Confirmed Type atenolol 37.5 mg PO QDAY #135 tab 10/14/17 02/23/18 Rx aspirin 1 tab PO 2XW 02/23/18 02/23/18 History zuhfwyvqymyu-cmrkomfw-cyyozf 1 tab PO EVERY OTHER DAY 02/23/18 02/23/18 History [Multivitamin 50 Plus] Allergies Allergy/AdvReac Type Severity Reaction Status Date / Time No Known Drug Allergies Allergy Verified 02/04/18 10:14 Review of Systems Review of Systems All systems reviewed & are unremarkable except as noted in HPI and below Exam Vital Signs (past 8 hours): Vital Signs - 8 hr 3 02/23/18 07:03 02/23/18 07:39 02/23/18 08:39 Temperature 98.0 F Pulse Rate 135 H 124 H 161 H Respiratory Rate 16 20 21 Blood Pressure 122/67 H Blood Pressure [Right Arm] 94/46 L 101/56 L Pulse Oximetry 99 95 95 3 02/23/18 08:43 02/23/18 10:30 02/23/18 11:00 Temperature 98.8 F Pulse Rate 138 H 136 H 95 H Respiratory Rate 16 24 Blood Pressure 101/56 L 148/61 H 92/47 L Blood Pressure [Right Arm] Pulse Oximetry 98 98 3 02/23/18 12:41 Temperature Pulse Rate 105 H Respiratory Rate Blood Pressure 109/80 Blood Pressure [Right Arm] Pulse Oximetry Pulse Oximetry 98 Oxygen Delivery Method Room Air Const General: comfortable Orientation: awake HENNM Head: atraumatic Eyes Other: No xanthelasma Neck Other: No JVD or carotid bruit Chest Chest: normal inspection of the chest and No crepitus Resp Effort & Inspection: normal respiratory effort Auscultation: no rales and no rhonchi Cardio Other: S1 variable, P2 normal, no S3 no S4 no significant murmur GI Other: No obvious hepatosplenomegaly General: No CVA tenderness Back/Spine/Pelvis Back: No back tenderness Skin General: No pallor Neuro Other: No obvious motor or sensory deficit Extrem Other: No significant pedal edema Psych Other: An alert oriented times place and person Objective Imaging EKG: ECG: EKG done today at 6:58 a.m. 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 RSR-complex in V1 Labs Result Diagrams: 02/23/18 06:53 02/23/18 06:53 Labs: Laboratory Results - last 24 hr 02/23/18 02/23/18 02/23/18 06:53 06:53 06:53 WBC 5.2 RBC 4.94 Hgb 15.8 Hct 45.3 MCV 91.6 MCH 32.0 MCHC 34.9 RDW 12.9 Plt Count 189 Neut % (Auto) 63.5 Lymph % (Auto) 19.6 L [place] % (Auto) 11.1 Eos % (Auto) 5.0 H Baso % (Auto) 0.8 Neut # (Auto) 3300 PT 11.2 INR 1.0 APTT 30 Sodium 139 Potassium 4.5 Chloride 101 Carbon Dioxide 29 BUN 24 H Creatinine 0.80 Estimated GFR > 60.0 BUN/Creatinine Ratio 30.0 H Glucose 103 Calcium 9.0 Troponin I < 0.012 Nasal Screen MRSA (PCR) 02/23/18 10:24 WBC RBC Hgb Hct MCV MCH MCHC RDW Plt Count Neut % (Auto) Lymph % (Auto) [place] % (Auto) Eos % (Auto) Baso % (Auto) Neut # (Auto) PT INR APTT Sodium Potassium Chloride Carbon Dioxide BUN Creatinine Estimated GFR BUN/Creatinine Ratio Glucose Calcium Troponin I Nasal Screen MRSA (PCR) Negative for mrsa Assessment & Plan (1) Atrial fibrillation with rapid ventricular response: Current visit: Yes Status: Acute (2) Palpitation: Current visit: Yes Status: Acute (3) Dizziness: Current visit: Yes Status: Acute Plan: Plan: Patient has history of paroxysmal AFib from last 50 years. Recently his episodes has increased. Last 3 episodes happened early in the morning. He has symptoms of sleep apnea but never been investigated. At present his [id number] score is 1, however soon he will be 74 years old and will need anticoagulation as per guidelines. Patient is very sensitive to AFib. The movement he develops AFib, he knows about AFib. His AFib episode today started about 5 o'clock in the morning. It is less than 48 hr hence technically he can be cardioverted. He has already received Lovenox. Will recommend starting Eliquis 5 mg twice a day at around 10:00 p.m. 1st dose tonight. Benefits and side effects discussed. Discussed with Dr. Soto. He will plan cardioversion with the help of anesthesiologist. Patient agrees with the plan. We will check magnesium and TSH. Will recommend echocardiogram as well as exercise stress test and the sleep apnea evaluation. If there is no significant structural heart disease on echocardiogram and exercise test is normal, then one of the reasonable option is to consider antiarrhythmic medications like flecainide 50 mg twice a day along with tolerable dose of beta-safia for prevention of atrial fibrillation along with anticoagulation. If he fails antiarrhythmic therapy, consider AFib ablation. Patient and his agree with the plan. We will be happy to see him as an outpatient. Discussed the plan with Dr. Soto. Thanks for the cardiology consult.
[2018-02-23 14:12] LABS: Thyroid Stimulating Hormone 1.96 uIU/mL (0.47-4.68)
--- NOTE | 2018-02-23 17:17 | PM.PROC.1 ---
Procedures Date/Time Date of procedure: 02/23/18 Time of procedure: 17:05 General Procedure description: After both verbal and written informed consent (patient has had this procedure done multiple times), patient had defibrillator pads placed by nursing staff. He had the defibrillator hooked up in the usual fashion by nursing staff. He was seen in consultation by Dr. Najera of anesthesia. Patient was given propofol by anesthesia. Once patient was demonstrated to be fully unconscious by Anesthesia, the defibrillator was charged to 200 joules after ensuring that synchronization was in place. After ensuring patient's bedside was cleared by all hospital personnel he was delivered 1 single synchronized shock of 200 joules. He immediately return to a normal sinus rhythm with sinus bradycardia. He was allowed to awaken from the anesthesia (propofol) and showed no evidence of complication. Complications: none
--- NOTE | 2018-02-23 17:24 | PM.PROC.1 ---
Procedures Date/Time Date of procedure: 02/23/18 Time of procedure: 17:15 General Procedure description: Anesthesia provided for cardioversion with Dr Soto. Pt is 73y/o male with long history of PAfib, on atenolol, no anticoagulation. History includes multiple successful cardioversions, no other significant medical issues. Pt has been NPO since 11pm yesterday. Pt was preoxygenated. 80mg propofol bolus. Single shock 200J by hospitalist resulted in sinus bradycardia in the 40's. SBP 90's after pt awoke. SaO2 stable in mid-upper 90's throughout. Brief PPV by RT. Pt awoke comfortable and conversant. See Hospitalist note for further details. Complications: none
[2018-02-23] MEDS: APIXABAN 5 MG TABLET PO (18:03)
--- NOTE | 2018-02-23 18:56 | PC.NURSE ---
Addendum entered by Gaye Cheema R.N. 02/23/18 22:17: Orthosatatic B/P done before ambulating pt in hallway on portable telemetry. HR mid 40s, pt asymptomatic. Discharge to home completed. Original Note: Addendum entered by Gaye Cheema R.N. 02/23/18 21:00: Diltiazem gtt turned off before cardioversion done; HR 70s-80s at rest. Drs. Soto and Reinaldo at bedside for cardioversion. RT also at bedside. Code cart at bedside with monitor on, defibrillator pads on in A/P format. NS infusing at 100 ml/hr. Sedation per anesthesia. Pt converted to SB rate 40s. Pt hypotensive post procedure. NS 250 ml bolus given per Dr. Soto. Per Dr. Soto, pt may discharge with HR in 40s if asymptomatic. Original Note: joseph note pt initially on diltiazem gtt at 15 mg/hr, able to titrate down to 5 mg/hr with HR 70s-80s at rest, 90s when up to BR. Diltiazem gtt turned off bfore
--- NOTE | 2018-02-24 08:41 | P.DS_ITS ---
History of Present Illness Date Patient Seen: 02/23/18 Time Patient Seen: 17:30 Chief complaint: Atrial fibrillation Narrative: Samuel Spence is a 73 year old male with a longstanding history of atrial fibrillation that has been paroxysmal. This probably dates back 20+ years. He has always been easy to cardiovert and has remained in sinus rhythm for extended periods of time between episodes of atrial fibrillation. He is actively refused anticoagulation and his risk score is actually been low enough it has not been recommended to him. However over the last 3+ months he has had 3+ episodes of atrial fibrillation. He spontaneously returned to sinus rhythm once which is unusual for him he came to the ER for electrocardioversion once and is back again with a recurrent episode of atrial fibrillation and rather rapid ventricular response which is his usual response. He has not been seen by Cardiology for many many years. 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 Discharge Providers Date of admission: 02/23/18 09:22 Primary care physician: Alfredo Soto MD Consults: 02/23/18 09:59 Consult to Physician Routine Comment: Consulting Provider: Bella Downing Reason for consultation: ATRIAL FIBRILLATION W/ RVR Discharge provider: Alfredo Soto MD Discharge Date: 02/23/18 Summary Discharge Diagnosis: 1. Atrial fibrillation with rapid ventricular response, resolved 2. Essential tremor Hospital Course: Patient was admitted to the ICU on a diltiazem drip for rate control purposes. Echocardiography was performed which showed no evidence of significant structural heart disease. Cardiology was consulted to readily agreed patient would be a candidate for cardioversion assuming he would be accepting of anticoagulation following that. I also suggested that with his normal structural heart that low-dose flecainide might be helpful in keeping him in sinus rhythm given the increased frequency of symptoms he had been experiencing. Therefore based on availability of anesthesia to provide appropriate anesthesia patient was cardioverted and rapidly returned to sinus bradycardia in the early evening of the 23 of February. Patient showed no evidence of postprocedure complications. He was awake and alert and was discharged home later that evening. He will be on atenolol but at a lower dose have flecainide at it and Eliquis for the next 3 weeks at least depending on clinical course. Status at Discharge Functional status at discharge: independent ambulation Overall status at discharge: patient is back to baseline Time Spent with Patient Greater than 30 minutes Exam Vital Signs (past 8 hours): Pulse Oximetry 96 Oxygen Delivery Method Room Air Oxygen Flow Rate 0 Narrative Exam Narrative: HEENT-unremarkable, normocephalic atraumatic Neck-no lymphadenopathy no bruits Lungs-clear anteriorly and posteriorly no wheezes no crackles good breath sounds Heart-regular rate and rhythm no murmur rub or gallop normal S1-S2 Abdomen-positive bowel tones soft nontender nondistended no hepatosplenomegaly no masses palpable Neuro-normal to screening exam, gait not tested Extremities-no cyanosis clubbing or edema Objective Labs Result Diagrams: 02/23/18 06:53 02/23/18 06:53 Labs: Laboratory Results - last 24 hr 02/23/18 02/23/18 02/23/18 10:24 Unknown Unknown Magnesium 2.0 TSH 1.96 Nasal Screen MRSA (PCR) Negative for mrsa Discharge Plan Discharge Plan Patient Disposition: Home, Self-Care Discharge comment: Okay to discharge home when fully awake or 18 30, whichever occurs last Provider Discharge Instructions Diet: Diet as Tolerated Activity: Activity as tolerated Discharge Data Primary Care Provider: Alfredo Soto Attending Provider: Alfredo Soto Admit Date/Time: 02/23/18 09:22 Discharge Interventions Interventions: Discharge assessment Last Done: 02/23/18 19:01
== END 2018-02-23 19:05 | disposition home or self-care (01) | DRG 310 ==
LOC: ED 08:12 → ICU 09:23
PROVIDERS: Emergency Medicine; Internal Medicine Cardiovascular Disease; Admitting Provider Internal Medicine; Emergency Provider Emergency Medicine; Family Provider Internal Medicine; PCP Internal Medicine; Visit Provider Internal Medicine
DX: I48.0 Paroxysmal atrial fibrillation (principal); G25.0 Essential tremor; R00.2 Palpitations
CPT/HCPCS: 92960; 36591; 71045; 80048; 83735; 84443; 84484; 85025; 85610; 85730; 87797; 93005; 93041; 93306; 94770; 96374; 96376; 99223; 99285; G0378; J1650

== ENCOUNTER → 2019-11-23 08:36 | Outpatient (CLI) | payer OTHER, SELFPAY ==
[2018-02-23 10:30] VITALS: BMI 21.9
[2019-11-23 10:14] LABS: Alanine Aminotransferase 24 IU/L (<50); Albumin 4.1 g/dL (3.5-5.0); Albumin Globulin Ratio 1.6 (1.0-2.8); Alkaline Phosphatase 69 U/L (38-126); Aspartate Aminotransferase 37 IU/L (17-59); Bilirubin Total 1.3 mg/dL (0.2-1.3); Blood Urea Nitrogen 20 mg/dL (9-20); Calcium 9.5 mg/dL (8.4-10.2); Carbon Dioxide 30 mmol/L (22-32); Chloride 102 mmol/L (98-107); Estimated Glomerular Filt Rate > 60.0 mL/min (>60); Globulin 2.6 g/dL (1.7-4.1); Glucose 97 mg/dL (80-110); HEMOLYSIS < 15 (0-50); Potassium 4.8 mmol/L (3.4-5.1); Sodium 138 mmol/L (137-145); Total Protein 6.7 g/dL (6.3-8.2)
[2019-11-23 10:45] LABS: Prostate Specific Antigen Scrn 2.07 ng/mL (0.1-4.0)
== END ==
PROVIDERS: Family Provider Internal Medicine; PCP Internal Medicine; Referring Provider Physician Assistant; Visit Provider Physician Assistant
DX: Z12.5 Encounter for screening for malignant neoplasm of prostate (principal); Z13.1 Encounter for screening for diabetes mellitus; Z13.6 Encounter for screening for cardiovascular disorders; Z79.899 Other long term (current) drug therapy; I48.0 Paroxysmal atrial fibrillation; G25.0 Essential tremor
CPT/HCPCS: 36415; 80053; G0103

== ENCOUNTER → 2021-01-30 09:16 | Outpatient (CLI) | payer OTHER, SELFPAY ==
[2020-12-31 16:00] VITALS: BMI 21.9
[2021-01-30 11:03] LABS: COVID19 -Nasal RAPID Negative (Negative)
== END ==
PROVIDERS: PCP Internal Medicine; Visit Provider Surgery
DX: Z01.812 Encounter for preprocedural laboratory examination (principal); Z20.822 Contact with and (suspected) exposure to COVID-19
CPT/HCPCS: 87635; C9803

== ENCOUNTER 2021-02-02 06:32 | Day surgery (SDC) | payer OTHER, SELFPAY ==
[2020-12-31 16:00] VITALS: BMI 21.9
[2021-01-26 15:12] VITALS: BMI 20.9
[2021-02-02] VITALS (13 sets, daily range): BP systolic 90–128; BP diastolic 43–99; PULSE 57–69; RESP 10–15; TEMP 36.6–36.8; O2SAT 94–99; BMI 21.2
[2021-02-02] MEDS: LACTATED RINGERS 1,000 ML 100 ML IV ×2 (07:31→09:27)
--- NOTE | 2021-02-02 07:50 | PM.PREOP ---
Pre-operative Note COVID-19 COVID-19 status: Negative Result date/Date tested (Pos, Neg/Pending): 01/30/21 Interval Note History & Physical reviewed/Exam performed by Physician: Yes Changes to H&P: No
[2021-02-02] MEDS: CEFAZOLIN 2 GM/100 ML FROZ.PIGGY IV (08:18)
--- NOTE | 2021-02-02 08:46 | SUR.OPER ---
Supine on padded OR bed, head on pillow, bilateral arms padded and tucked at side, legs uncrossed, safety belt at thigh, tape over blanket over lower legs .
[2021-02-02] MEDS: BUPIVACAINE 0.25% W/ EPI 30 ML VIAL 60 ML INJ (09:00)
[2021-02-02] MEDS: BUPIVACAINE LIPOSOME 266 MG/20 ML VIAL INJ (09:01)
--- NOTE | 2021-02-02 10:36 | P.OP_ITS ---
Operative Date/Time/Diagnoses Date of procedure: 02/02/21 Time of procedure: 10:37 Pre-op diagnosis: Bilateral inguinal hernias Post-op diagnosis: same Procedure & Clinicians Procedure: Laparoscopic repair of bilateral inguinal hernias with Bard 3DMax mesh Same procedure as scheduled: Yes Indications: Bilateral inguinal hernias Surgeon: Analy Culp Click Yes if Unassisted: Yes Anesthesia Type: General Operative Notes Findings: Deep direct left inguinal hernia with colon incarcerated within it. Moderate left indirect inguinal hernia with spermatic cord lipoma. Moderate right direct inguinal hernia defect. No significant right indirect inguinal hernia defect. Specimen(s): none sent Prosthetic devices, grafts, tissues, transplants, or devices: Large Bard 3DMax inguinal hernia mesh x2 Estimated Blood Loss (mL): 5 Blood products transfused: none Procedure in detail: The patient was brought into the operating room and placed supine on the OR table. Sequential compression devices were placed on both legs and turned on. Appropriate perioperative antibiotics were given prior to the start of surgery. General anesthesia was induced the patient was intubated. A Tijerina catheter was placed sterilely in the bladder. The abdomen was prepped and draped in sterile fashion. Surgical time-out was conducted. Local anesthetic was injected under the skin just superior to the umbilicus and a 5 mm vertical incision was made at this site. The umbilical stalk was grasped with a Geri and elevated. A Veress needle was passed through the fascia into proper position. The position was tested with a saline drop test which was appropriate for intra-abdominal Veress needle placement. The abdomen was then insufflated in the usual fashion. Once insufflated to 15 mm Hg the Veress needle was removed and a 5 mm optical trocar was placed under direct vision using a 5 mm 30 degree scope. Once the camera was inside the abdomen I took a look around. There was no injury from port placement. Two additional ports were placed in a similar fashion in the right and left mid clavicular line at the level of the umbilicus, one handbreadth lateral to the umbilicus. The umbilical port was upsized to a 10mm port. Attention was turned to the pelvis, and both inguinal regions were evaluated. On the left side there was a deep direct inguinal hernia with colon incarcerated in it. On the right side there was a moderate direct hernia defect with no bowel or omentum structures incarcerated within it. Beginning on the right side, I started taking down adhesions of the colon to the peritoneum, using cold Endo Aspen. Once the adhesions were taken down, and the colon was freed from the hernia defect, attention was then turned to the hernia repair. Local anesthetic was in the infiltrated into the abdominal wall using 0.25% Marcaine with epi, in the region of the expected peritoneal incision. Metzenbaum scissors attached to cautery were then used to incise the peritoneum transversely from the midline laterally to the ASIS, 10 cm superior to the inguinal hernia defect. The peritoneal flap was developed down to the inguinal hernia defects. When I reached the defects I found a moderate indirect hernia defect with a spermatic cord lipoma stuck in it. The lipoma was removed from the defect, and removed from the patient. It was passed off the field. Once the flap had been fully developed and the cord structures were completely exposed, and the hernia defect had been fully evaluated, I then exposed the pubic tubercle and pushed down the bladder so that there was space for good mesh placement. A large 3DMax macro porous mesh was then brought into the field. I placed it through the 10 mm port and positioned it within the surgical defect covering the direct, indirect, and femoral space with 5 cm overlap in each direction. I then secured the mesh to the pubic tubercle in 2 locations using dissolvable surgical tacks. Once the mesh was secured in place I brought up the peritoneal flap. There was no clam shelling or bending of the mesh when the peritoneal flap was brought up. I then secured the peritoneum up to the abdominal wall using the same surgical tacker, with dissolvable tacks. There wa s no gapping of the peritoneal flap or exposed mesh. Attention was then turned to the left side. Local anesthetic was in the infiltrated into the abdominal wall using 0.25% Marcaine with epi, in the region of the expected peritoneal incision. Metzenbaum scissors attached to cautery were then used to incise the peritoneum transversely from the midline laterally to the ASIS, 10 cm superior to the inguinal hernia defect. The peritoneal flap was developed down to the inguinal hernia defect. When I reached the defect I found moderate direct defect, and no significant indirect defect or spermatic cord lipoma. Once the flap had been fully developed and the cord structures were completely exposed, and the hernia defect had been fully evaluated, I then exposed the pubic tubercle and pushed down the bladder so that there was space for good mesh placement. A large 3DMax macro porous mesh was then brought into the field. I placed it through the 10 mm port and positioned it within the surg ical defect covering the direct, indirect, and femoral space with 5 cm overlap in each direction. I then secured the mesh to the pubic tubercle in 2 locations using dissolvable surgical tacks. Once the mesh was secured in place I brought up the peritoneal flap. There was no clam shelling or bending of the mesh when the peritoneal flap was brought up. I then secured the peritoneum up to the abdominal wall using the same surgical tacker, with dissolvable tacks. There was no gapping of the peritoneal flap or exposed mesh. At this point the mesh was well positioned, secured, and well covered. There was no exposed mesh, no bleeding, and the peritoneal flaps were in good position. I then infiltrated the abdominal wall in the area of dissection with an additional 20 mL of Exparel, combined with the remaining local anesthetic for total of 80 mL of 0.25% Marcaine for the case. At this point the umbilical port site was closed with 0 Vicryl suture in the fascia using a Reinaldo-Dalia suture Passer. Insufflation was then removed from the abdomen, and the umbilical port site was closed with 3-0 Vicryl in the subcutaneous layers, and 4 Monocryl in the skin. The other 2 port sites were closed with 4 Monocryl in the skin. Each port site was sealed with Dermabond. Local anesthetic was given at each of the port sites and in the fascia. This concluded the procedure. At this point the needle sponge and instrument counts were correct. Patient was awakened from anesthesia and extubated. The Tijerina catheter was removed, and the testicles were brought down to ensure they were in proper position. The patient was transferred to the postanesthesia care unit in stable condition. Complications: none Post-operative Condition: stable Disposition: PACU
[2021-02-02] MEDS: ACETAMINOPHEN 325 MG TABLET 650 MG PO (11:16)
[2021-02-02] MEDS: OXYCODONE IR 5 MG TABLET PO (11:17)
--- NOTE | 2021-02-02 11:45 | SUR.PHASEI ---
pt has essential tremors at baseline, did have full body tremors in phase I, covered with warm blankets and these resolved. Pt had low BP (90/40's). Pt states this can be normal for him. Asymptomatic, gave extra 100 ml of IVF to get pt 2nd bag of IVF infused. BP increased to low 100's. Pt stated pain was 2-3/10. medicated with tylenol and oxy, ice pack on abd as well. Pt states pain tolerable. transfered to phase II without issue.
== END 2021-02-02 13:02 | disposition home or self-care (01) ==
PROVIDERS: PCP Internal Medicine; Referring Provider Internal Medicine; Visit Provider Surgery
PROC: 0YQ64ZZ Repair Left Inguinal Region, Percutaneous Endoscopic Approach (ICD-10-PCS; CPT 49650; principal; 2021-02-02 07:45)
DX: K40.30 Unilateral inguinal hernia, with obstruction, without gangrene, not specified as recurrent (principal); K40.90 Unilateral inguinal hernia, without obstruction or gangrene, not specified as recurrent; D17.6 Benign lipomatous neoplasm of spermatic cord; I48.0 Paroxysmal atrial fibrillation
CPT/HCPCS: 49650; 82962; C1781; C9290; J0690; J1100; J2250; J2405; J3010

== ENCOUNTER → 2021-08-18 09:37 | Outpatient (CLI) | payer OTHER, SELFPAY ==
[2021-02-25 10:13] VITALS: BMI 21.9
[2021-08-18 11:02] LABS: Alanine Aminotransferase 26 IU/L (<50); Albumin 4.1 g/dL (3.5-5.0); Albumin Globulin Ratio 1.6 (1.0-2.8); Alkaline Phosphatase 56 U/L (38-126); Aspartate Aminotransferase 34 IU/L (17-59); Bilirubin Total 1.5 mg/dL (0.2-1.3); Blood Urea Nitrogen 24 mg/dL (9-20); Calcium 9.3 mg/dL (8.4-10.2); Carbon Dioxide 33 mmol/L (22-32); Chloride 101 mmol/L (98-107); Cholesterol 162 mg/dL (140-199); Estimated Glomerular Filt Rate > 60.0 mL/min (>60); Globulin 2.5 g/dL (1.7-4.1); Glucose 92 mg/dL (80-110); HDL Cholesterol 43 mg/dL (40-60); HEMOLYSIS < 15 (0-50); LDL Cholesterol Calculated 103 mg/dL (<100); Potassium 4.4 mmol/L (3.4-5.1); Sodium 138 mmol/L (137-145); Total Protein 6.6 g/dL (6.3-8.2); Triglycerides 79 mg/dL (35-150)
== END ==
PROVIDERS: PCP Internal Medicine; Referring Provider Internal Medicine Cardiovascular Disease; Visit Provider Internal Medicine Cardiovascular Disease
DX: Z13.220 Encounter for screening for lipoid disorders (principal); I48.0 Paroxysmal atrial fibrillation
CPT/HCPCS: 36415; 80053; 80061

== ENCOUNTER → 2023-08-17 08:49 | Outpatient (CLI) | payer OTHER, SELFPAY ==
[2022-07-12 14:06] VITALS: BMI 21.9
[2023-08-17 11:26] LABS: Alanine Aminotransferase 24 IU/L (<50); Albumin 4.1 g/dL (3.5-5.0); Albumin Globulin Ratio 1.6 (1.0-2.8); Alkaline Phosphatase 70 U/L (38-126); Aspartate Aminotransferase 35 IU/L (17-59); BUN Creatinine Ratio 20.4 (6-22); Bilirubin Total 1.5 mg/dL (0.2-1.3); Blood Urea Nitrogen 19 mg/dL (9-20); Calcium 9.7 mg/dL (8.4-10.2); Carbon Dioxide 31 mmol/L (22-32); Chloride 100 mmol/L (98-107); Estimated Glomerular Filt Rate > 60 mL/min (>60); Globulin 2.6 g/dL (1.7-4.1); Glucose 91 mg/dL (80-110); HEMOLYSIS < 15 (0-50); Potassium 4.7 mmol/L (3.4-5.1); Sodium 136 mmol/L (137-145); Total Protein 6.7 g/dL (6.3-8.2)
== END ==
PROVIDERS: PCP Internal Medicine; Referring Provider Physician Assistant Medical; Visit Provider Physician Assistant Medical
DX: I48.0 Paroxysmal atrial fibrillation (principal)
CPT/HCPCS: 36415; 80053

== ENCOUNTER → 2024-10-05 09:32 | Outpatient (CLI) | payer OTHER, SELFPAY ==
[2022-07-12 14:06] VITALS: BMI 21.9
[2024-10-05 10:40] LABS: Add Manual Diff / Slide Review NO; Basophils Absolute Auto 0 /uL (0-100); Eosinophils Absolute Auto 200 /uL (0-450); Eosinophils Percent Auto 5.1 % (2-4); Hematocrit 44.6 % (41-53); Hemoglobin 15.1 g/dL (13.5-17.5); Lymphocytes Absolute Auto 800 /uL (1100-4500); Lymphocytes Percent Auto 16.7 % (25-40); Mean Corpuscular Hemoglobin 31.2 PG (26-34); Mean Corpuscular Volume 91.9 fL (80-100); Monocytes Absolute Auto 600 /uL (0-900); Monocytes Percent Auto 12.1 % (3-14); Neutrophils Absolute Auto 3000 /uL (1500-7000); Neutrophils Percent Auto 65.1 % (50-75); Platelet Count 253 X10^3/uL (150-400); Red Blood Cell Count 4.85 X10^6/uL (4.5-5.9); Red Cell Distribution Width 13.3 % (11.6-14.8); White Blood Cell Count 4.6 X10^3/uL (4.5-11.0)
[2024-10-05 11:13] LABS: Alanine Aminotransferase 23 IU/L (<50); Albumin 4.2 g/dL (3.5-5.0); Albumin Globulin Ratio 2.1 (1.0-2.8); Alkaline Phosphatase 65 U/L (38-126); Aspartate Aminotransferase 34 IU/L (17-59); BUN Creatinine Ratio 26.3 (6-22); Bilirubin Total 1.4 mg/dL (0.2-1.3); Blood Urea Nitrogen 25 mg/dL (9-20); Calcium 9.3 mg/dL (8.4-10.2); Carbon Dioxide 30 mmol/L (22-32); Chloride 100 mmol/L (98-107); Estimated Glomerular Filt Rate > 60 mL/min (>60); Glucose 94 mg/dL (80-110); HEMOLYSIS < 15 (0-50); Potassium 4.4 mmol/L (3.4-5.1); Sodium 135 mmol/L (137-145); Total Protein 6.2 g/dL (6.3-8.2)
== END ==
LOC: LAB 09:36
PROVIDERS: PCP Internal Medicine; Referring Provider Internal Medicine Cardiovascular Disease; Visit Provider Internal Medicine Cardiovascular Disease
DX: I48.0 Paroxysmal atrial fibrillation (principal)
CPT/HCPCS: 36415; 80053; 85025